=== PATIENT | female | born 1940 | race Caucasian/White ===

== ENCOUNTER → 2017-07-19 | Outpatient (CLI) | payer OTHER ==
[~2017-07-19] MED LIST: ASPI325T45 PO; GLIP5TAB11 PO; IBUP-103 PO; INSDGIPEN SC; LISI-725 PO; MCRK20 PO; METF1000 PO; NVLGIPEN SC; OXYB5TAB PO; OXYC5TAB PO; PLV75 PO
[2017-07-19 17:55] LABS: BLOOD UREA NITROGEN 20 mg/dl (7-18); BUN/CREATININE RATIO 23.9 (10-20); CREATININE 0.82 mg/dl (0.60-1.20)
== END | disposition home or self-care (01) ==
LOC: C.LABPBG 11:22
PROVIDERS: ATTEND Urology
DX: N28.89 Other specified disorders of kidney and ureter (principal)

== ENCOUNTER → 2017-07-30 | Outpatient (CLI) | payer OTHER ==
[~2017-07-30] MED LIST changes: +OPTIRAY 320 IV PRN
--- NOTE | 2017-07-30 13:38 | DIAGNOSTIC IMAGING REPORT ---
KIDNEY (ABDOMEN) COMBO CLINICAL HISTORY: Left renal mass. COMPARISON STUDY: CT of the abdomen March 31, 2016. TECHNIQUE: Unenhanced, venous and delayed phase imaging of the abdomen was performed. Injection of 65 cc of Optiray 320 IV was uneventful. FINDINGS: Linear and groundglass right lower lung opacity favors scarring. The liver, spleen, adrenal glands and pancreas are unremarkable. There is no biliary ductal dilatation status post cholecystectomy. There is no abdominal lymphadenopathy. An enhancing 3.1 x 2.6 cm lesion arising from the lower pole of the left kidney has not significantly changed in size since exam of March 31, 2016. No macroscopic fat is identified within this lesion. This suggests a renal cell carcinoma. A few additional water attenuation renal lesions reflect cysts. Several subcentimeter renal lesions are too small to characterize. 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 No suspicious skeletal lesions are present. IMPRESSION: 1. No change in the 3.1 cm enhancing lesion arising from the lower pole of the left kidney since CT of March 31, 2016. This represents a solid renal lesion and likely reflects renal cell carcinoma. 2. Multiple additional renal lesions which are too small to characterize but favor cysts. 3. 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 Electronically signed by: Francisco Hugo M.D. 07/30/2017 1:37 PM Dictated Date/Time: 07/30/2017 1:13 PM
== END | disposition home or self-care (01) ==
LOC: C.CTS 12:03
PROVIDERS: ATTEND Urology
DX: N28.89 Other specified disorders of kidney and ureter (principal)

== ENCOUNTER → 2017-08-01 | Outpatient (CLI) | payer OTHER ==
[~2017-08-01] MED LIST changes: -OPTIRAY 320 IV PRN
[2017-08-01 12:43] LABS: BLOOD UREA NITROGEN 21 mg/dl (7-18); BUN/CREATININE RATIO 18.9 (10-20)
== END | disposition home or self-care (01) ==
LOC: C.LABPBG 09:44
PROVIDERS: ATTEND Urology
DX: N28.89 Other specified disorders of kidney and ureter (principal)